=== PATIENT | female | born 1980 | race Caucasian/White ===

== ENCOUNTER 2022-02-12 16:30 | Emergency (ER) | payer OTHER, SELFPAY ==
[2022-02-12 16:43] VITALS: BP 119/82; PULSE 91; RESP 16; TEMP 36.9; O2SAT 100
[2022-02-12 16:50] VITALS: BP 119/82; PULSE 91; RESP 16; TEMP 36.9; O2SAT 100
--- NOTE | 2022-02-12 17:02 | ED.SKABFB ---
HPI - Skin/Abscess/Foreign Bdy General Chief complaint: Skin/Abscess/Foreign Body Stated complaint: break out on face Time Seen by Provider: 02/12/22 17:10 Source: patient and RN notes reviewed Mode of arrival: ambulatory Limitations: no limitations History of Present Illness HPI narrative: 41-year-old female presents with concern for lesions to her face. She reports symptoms started 8 months ago after she used old makeup with Prelone lesions on her chin. The she reports they seem to go away but have recently returned. She reports she gets white drainage out of them. She reports they continue to pop up around her lower face. She reports she has been picking at them to get drainage out. She denies fevers, redness, swelling MD complaint: rash Related Data Allergies Allergy/AdvReac Type Severity Reaction Status Date / Time propoxyphene Allergy Mild VOMITING Verified 02/12/22 16:50 tramadol Allergy Mild VOMITING Verified 02/12/22 16:50 Review of Systems Review of Systems: CONSTITUTIONAL: Denies malaise, chills, sweats, or fever. EYES: Denies redness, or discharge. ENT: Denies rhinorrhea, congestion, swollen lips, swollen tongue CARDIOVASCULAR: Denies chest pain, palpitations, or edema. RESPIRATORY: Denies cough or dyspnea. GASTROINTESTINAL: Denies abdominal pain, nausea, vomiting SKIN: Reports purulenct skin lesions to her face MUSCULOSKELETAL: Denies joint pain or myalgia. NEUROLOGIC: Denies headache. All systems reviewed & are unremarkable except as noted in HPI and below PMFSH Comments At time of signature, agree with nursing past medical, surgical, social and family history. There is no relevant family history pertinent to the presenting complaint Exam Narrative: GENERAL: Well-appearing, well-nourished, and in no acute distress. HEAD: Normocephalic, atraumatic. EYES: PERRLA, conjunctivae clear, and EOMI. ENT: Mucous membranes moist. Oropharynx without edema, erythema or lesions. NECK: Supple. No lymphadenopathy CHEST: Clear to auscultation. No respiratory distress. HEART: Regular rate and rhythm. SKIN: Warm, dry. Scabs to the lower face in various stages of healing noted, no current purulent drainage NEURO: Alert and oriented x3. PSYCH: Normal mood and affect Course Course Emergency Course: Patient is aware of diagnosis, understands and agrees to treatment plan. Anticipatory guidance given. Patient agrees to follow-up as directed and is aware of reasons to seek care at the emergency department. Portions of this record may have been created with voice recognition software Level of Care: Express Care Visit Vital Signs Vital signs: Vital Signs Temperature 98.5 F 02/12/22 16:43 Pulse Rate 91 02/12/22 16:43 Respiratory Rate 16 02/12/22 16:43 Blood Pressure 119/82 02/12/22 16:43 Pulse Oximetry 100 02/12/22 16:43 Oxygen Delivery Room Air 02/12/22 16:43 Temperature 98.5 F 02/12/22 16:50 Pulse Rate 91 02/12/22 16:50 Respiratory Rate 16 02/12/22 16:50 Blood Pressure 119/82 02/12/22 16:50 Pulse Oximetry 100 02/12/22 16:50 Oxygen Delivery Room Air 02/12/22 16:50 Reviewed. MDM - Skin/Abscess/Foreign Bdy MDM Narrative Medical decision making narrative: Does not appear at this time to be erythema multiforme, bullous, SJS, TEN; no evidence at this time to suggest RMSF, endocarditis or Lyme disease; patient looks well, nontoxic and is tolerating oral intake; no neurologic signs or symptoms; no headache, photophobia or neck pain; afebrile; appropriate for initial outpatient treatment; discussed the importance of follow-up, patient agrees; question, viral exanthema, contact dermatitis, allergic dermatitis, eczema, urticaria, cystic acne, staph infection. No soft palate or uvula edema, no tongue, lip edema or other mucosal involvement, no respiratory compromise, no stridor, no wheezing, no wheezing, no history of syncope, no hypotension, no nausea, vomiting, or diarrhea. Instructed
== END 2022-02-12 17:27 | disposition home or self-care (01) ==
PROVIDERS: Emergency Provider Nurse Practitioner
DX: L98.9 Disorder of the skin and subcutaneous tissue, unspecified (principal)
CPT/HCPCS: 99203; G0463